=== PATIENT | female | born 1985 | race Caucasian/White ===

== ENCOUNTER 2020-07-11 13:00 | Emergency (ER) | payer OTHER ==
[~2020-07-11 13:00] MED LIST: COLACE 100MG C100 MG PO; MORPHINE SULFAT15 M1 PO; NORCO 7.5-3251 EACH PO; NORFLEX 100 MG100 MG PO; PERCOCET 5-3251 EACH PO; PERCOCET 7.5-31 EACH PO; PREDNISONE 50 M50 MG PO; ROBAXIN-750750 MG PO; ULTRAM50 MG PO; Voltaren Gel 1% TOP
[2020-07-11 18:11] LABS: HEMOGLOBIN 13.6 gm/dl (12.3-15.3); RED BLOOD COUNT 4.83 M/UL (4.00-5.10); WHITE BLOOD COUNT 8.8 K/UL (4.5-11.0)
[2020-07-11 18:25] LABS: BUN/CREATININE RATIO 20 (0-10)
== END 2020-07-11 21:37 | disposition home or self-care (01) ==
LOC: ER1 13:00
PROVIDERS: Nurse Practitioner
DX: E11.65 Type 2 diabetes mellitus with hyperglycemia (principal); R51.9 Headache, unspecified; R60.0 Localized edema
CPT/HCPCS: 71045; 71250; 80053; 81001; 82009; 82803; 82962; 83605; 83880; 85025; 96374; 96375; 99285; J1100; J1200; J1885; J2405

== ENCOUNTER → 2020-10-10 | Outpatient (CLI) | payer OTHER | LOC: EXRD 09:16 | DX: M25.511 Pain in right shoulder (principal) | CPT/HCPCS: 73030 ==

== ENCOUNTER 2021-01-06 20:04 | Emergency (ER) | payer OTHER ==
[2021-01-06] MEDS ORDERED: VALIUM2 MG PO (22:11)
[2021-01-06] MEDS ORDERED: MEDROL4 MG PO (22:11)
== END 2021-01-06 22:25 | disposition home or self-care (01) ==
LOC: ER1 20:04
DX: M54.5 Low back pain (principal); E11.9 Type 2 diabetes mellitus without complications
CPT/HCPCS: 72100; 81001; 84703; 96372; 99283; J1885; J2930

== ENCOUNTER → 2021-01-27 | Outpatient (CLI) | payer OTHER ==
[~2021-01-27] MED LIST changes: +MEDROL4 MG PO; +VALIUM2 MG PO
== END ==
LOC: RAD 09:00
DX: M75.111 Incomplete rotator cuff tear or rupture of right shoulder, not specified as traumatic (principal); S43.431A Superior glenoid labrum lesion of right shoulder, initial encounter; X58.XXXA Exposure to other specified factors, initial encounter
CPT/HCPCS: 73040; 73222; A9577; Q9967